=== PATIENT | female | born 1950 | race African-American/Black ===

== ENCOUNTER → 2016-11-18 | Outpatient (CLI) | payer BC ==
[~2016-11-18] MED LIST: ACTOS PO; ALB/IPRATROPIUM/1 E2 INH; ALBUTEROL1.25 MG/3 IH; ALDACTONE PO; ALENDRONATE SOD70 M1 PO; AMARYL PO; AMARYL2 MG PO; AMPICILLIN PO; ASPIRIN81 M2 PO; ASPIRIN81 MG PO; ATORVASTATIN CA80 MG PO; AZITHROMYCIN250 MG PO; CANASA1000 MG/S1 RC; CANASA1000 MG/SU PR; CARDIZEM30 M1 PO; CARDIZEM30 MG PO; CATAFLAM50 MG PO; CIPRO PO; COMBIVENT INH14.7 GM INH; COMBIVENT MININEB INH; DESYREL50 MG PO; DOCUSATE SODIU100 MG PO; ENTRESTO 24 MG1 EACH PO; FISH OIL 1,2001 CAP PO; FLAGYL PO; FLEXERIL10 MG PO; FLUOXETINE HCL20 M1 PO; GLIMEPIRIDE2 MG PO; GLUCOTROL; GLYBURIDE PO; HUMIBID-LA600 MG PO; HYDRALAZINE HC100 MG PO; HYDRALAZINE HCL50 MG PO; HYDROCHLOROTHIA25 MG PO; HYDROXYZINE PAM25 M1 PO; JANUVIA PO; JANUVIA100 MG PO; JANUVIA25 MG PO; JANUVIA50 MG PO; LEVAQUIN PO; LIPITOR PO; LIPITOR20 MG PO; LIPITOR40 MG PO; LISINOPRIL20 MG PO; LORTAB 5/500 TA1 TA2 PO; METOPROLOL TAR25 MG PO; METOPROLOL TART25 MG PO; MIRALAX17 G2 PO; MIRALAX17 GM PO; MONUROL3 GM PO; MULTI VITAMIN1 EACH PO; MULTI-DAY VITA1 EACH PO; MULTIPLE VITAMI1 T13 PO; MULTIVITAMINS1 EAC3 PO; NICORETTE4 MG BC; NICOTINE PATCH1 EAC1 TD; NICOTINE TRANSD21 MG EXT; NICOTINE1 EAC1 TD; NITROFURANTOIN100 M3 PO; NORVASC PO; NORVASC10 MG PO; NOVOLOG100 U/ML; OXYCODON HCL-AP1 TA2 PO; OXYCODONE HCL10 MG PO; PANTOPRAZOLE SO40 MG PO; PAXIL PO; PERCOCET 10/31 UDTA1 PO; PERCOCET 10/3251 TAB PO; PERCOCET 5-3251 TAB PO; PHENERGAN25 MG PO; PREDNISONE PO; PREDNISONE10 MG PO; PROTONIX PO; PROZAC PO; PULMICORT200 MCG/AE; PYRIDIUM PO; RAPIFLUX20 M1 PO; SIMVASTATIN40 MG PO; TRAMADOL HCL50 M1 PO; TRAMADOL HCL50 M2 PO; TYLENOL325 M1 PO; VITAMIN D31000 UNIT PO; VOLTAREN50 MG PO; ZESTRIL40 MG PO; ZOFRAN ODT4 MG PO
== END | disposition home or self-care (01) ==
LOC: CSSDAY 14:16
PROC: 3C1ZX8Z Irrigation of Indwelling Device using Irrigating Substance, External Approach (ICD-10-PCS; principal; 2016-11-18)
DX: Z45.2 Encounter for adjustment and management of vascular access device (principal)
CPT/HCPCS: G0463; J1642

== ENCOUNTER 2017-03-02 14:41 | Emergency (ER) | payer BC ==
--- NOTE | ~2017-03-02 | CT4 ---
[facility] A Service of [facility] RADIOLOGY TEXT RESULTS PATIENT: LAURA JEFFERY LOCATION: [facility] : 52 UNIT #: [id number] AGE: [address]: Robinson Mckeon MD SEX: F ORDER DR: [id number] [facility] [address] [place], [place] [address] [id number] E MR#: [id number] Acc #: [id number] NAME: LAURA JEFFERY : 1950 SEX: F STUDY DATE/TIME: 03/02/2017 16:10 UNIT: FABIANA ROOM: STUDY DESCRIPTION: CT Abd and Pelv Wo Cont Attending Physician: Robinson Mckeon M.D. Ordering Physician: Robinson Mckeon M.D. Primary Care Physician: Boo Au M.D. MEDICAL IMAGING REPORT This report is preliminary unless electronic signature is present EXAM CT abdomen and pelvis without contrast HISTORY Abdomen pain nausea vomiting diarrhea beginning today. COMPARISON 01/07/2015. TECHNIQUE Axial 5 mm images were obtained through the abdomen and pelvis without IV or oral contrast. This CT exam was performed with one or more of the following radiation dose reduction techniques: automatic control, adjustment of mA and/or kV according to patient size, and iterative reconstruction. FINDINGS Lung bases are clear. The liver, gallbladder, spleen, pancreas, adrenal glands and kidneys are normal in appearance. The aorta is normal in size and there is no adenopathy. The bowel is normal. The uterus and adnexal regions are normal and the bladder is normal. There is a left hip prosthesis present. There are degenerative changes in the lumbar spine. There are some cecal diverticula which are stable. IMPRESSION 1. Study is unremarkable. There is no evidence of colitis or cause for the patient's abdomen pain or diarrhea. 2. Degenerative changes lumbar spine. Previous left hip replacement. Dictated by... [facility] A Service of [facility] RADIOLOGY TEXT RESULTS PATIENT: LAURA JEFFERY LOCATION: [facility] : 52 UNIT #: [id number] AGE: [address]: Robinson Mckeon MD SEX: F ORDER DR: Ash Cohen M.D. THIS IS AN ELECTRONICALLY VERIFIED REPORT Ash Cohen M.D. at 03/03/2017 8:41 AM FABIENNE/[place] TD: 03/02/2017 18:01 JOB #: [id number] MEDICAL IMAGING REPORT Page 1 of 1 COPY
[~2017-03-02 14:41] MED LIST changes: -ALB/IPRATROPIUM/1 E2 INH; -ALDACTONE PO; -ALENDRONATE SOD70 M1 PO; -ASPIRIN81 MG PO; -ATORVASTATIN CA80 MG PO; -CARDIZEM30 M1 PO; -COMBIVENT MININEB INH; -DESYREL50 MG PO; -DOCUSATE SODIU100 MG PO; -ENTRESTO 24 MG1 EACH PO; -HUMIBID-LA600 MG PO; -HYDRALAZINE HC100 MG PO; -HYDROXYZINE PAM25 M1 PO; -JANUVIA25 MG PO; -METOPROLOL TAR25 MG PO; -METOPROLOL TART25 MG PO; -MONUROL3 GM PO; -MULTI-DAY VITA1 EACH PO; -MULTIVITAMINS1 EAC3 PO; -NICOTINE PATCH1 EAC1 TD; -NICOTINE1 EAC1 TD; -NOVOLOG100 U/ML; -TRAMADOL HCL50 M1 PO; -TRAMADOL HCL50 M2 PO; -VITAMIN D31000 UNIT PO
[2017-03-02 16:05] LABS: BASOPHIL% 0.1 % (0-2.5); HEMATOCRIT 38.6 % (35.0-45.0); HEMOGLOBIN 12.1 gm/dL (12.0-16.0); LYMPHOCYTE# 0.3 X10e3 (1.0-3.5); MEAN CELL VOLUME 85.1 FL (83-96); MEAN CORPUSCULAR HEMOGLOBIN 26.6 PG (28-34); MEAN CORPUSCULAR HGB CONC 31.3 g/dL (30-36); MEAN PLATELET VOLUME 7.9 FL (6.5-11.5); MONOCYTE# 0.6 X10e3 (0-1.0); NEUTROPHIL# 14.8 X10e3 (1.5-7.1); NEUTROPHIL% 93.9 % (40-75); PLATELET COUNT 344 X10e3 (140-420); RED BLOOD COUNT 4.54 X10e (3.90-5.30); RED CELL DISTRIBUTION WIDTH 15.2 % (11.0-15.5); WHITE BLOOD COUNT 15.7 X10e3 (4.0-10.5)
[2017-03-02 16:06] LABS: DIFF IND YES
[2017-03-02 16:27] LABS: ALBUMIN SERUM 3.5 g/dL (3.5-5.0); BILIRUBIN, DIRECT 0.1 mg/dL (0.0-0.2); BILIRUBIN,INDIRECT 0.8 mg/dL (0.0-0.9); BILIRUBIN,TOTAL 0.9 mg/dL (0.2-2.0); CALCIUM SERUM 10.3 mg/dL (8.4-10.2); CREATININE SERUM 0.8 mg/dL (0.6-1.4); GLOM FILT RATE Estimated 90.4 mL/min (>60); POTASSIUM 3.5 mmol/L (3.5-5.1); PROTEIN TOTAL SERUM 7.5 g/dL (6.0-8.3)
[2017-03-02 17:34] LABS: ANISOCYTOSIS MOD
[2017-03-02 17:35] LABS: PLATELET ESTIMATE NORMAL (NORMAL)
[2017-03-02 17:36] LABS: URINE SOURCE CLEAN CATCH
[2017-03-02 17:39] LABS: URINE APPEARANCE CLOUDY; URINE BLOOD NEG (NEG); URINE COLOR DK YELLOW; URINE GLUCOSE NEG (NEG); URINE KETONE 1+ (NEG); URINE LEUKOCYTE ESTERASE 2+ (NEG); URINE NITRATE NEG (NEG); URINE PROTEIN TRACE (NEG); URINE SPECIFIC GRAVITY 1.024 (1.003-1.035)
[2017-03-02 17:41] LABS: CULTURE INDICATED? YES; URINE BACTERIA AUWI 3+ (NEGATIVE); URINE SQUAMOUS EPITHELIAL CELL FEW /[HPF]; UWBCS1 AUWI 50-100 (0-5)
[2017-03-02 17:59] LABS: URINE BILIRUBIN NEG (NEG)
[2017-07-13] MEDS ORDERED: COMBIVENT MININEB INH ×2 (04:26→04:37)
[2017-07-13] MEDS ORDERED: ENTRESTO 24 MG1 EACH PO ×2 (04:26→04:38)
[2017-07-13] MEDS ORDERED: DESYREL50 MG PO ×2 (04:27→04:39)
[2017-07-13] MEDS ORDERED: JANUVIA25 MG PO (04:28)
[2017-07-13] MEDS ORDERED: HYDROXYZINE PAM25 M1 PO ×2 (04:29→04:40)
[2017-07-13] MEDS ORDERED: ATORVASTATIN CA80 MG PO ×2 (04:29→04:40)
[2017-07-13] MEDS ORDERED: NICOTINE1 EAC1 TD ×2 (04:31→04:41)
[2017-07-13] MEDS ORDERED: METOPROLOL TAR25 MG PO (04:32)
[2017-07-13] MEDS ORDERED: JANUVIA50 MG PO ×2 (04:39→04:44)
[2017-07-13] MEDS ORDERED: METOPROLOL TART25 MG PO (04:41)
[2017-07-13] MEDS ORDERED: DOCUSATE SODIU100 MG PO (04:42)
[2017-07-13] MEDS ORDERED: MIRALAX17 GM PO (04:43)
[2017-07-13] MEDS ORDERED: HUMIBID-LA600 MG PO (04:43)
[2017-07-13] MEDS ORDERED: MULTI-DAY VITA1 EACH PO (04:44)
[2017-07-13] MEDS ORDERED: ASPIRIN81 MG PO (04:45)
[2017-07-13] MEDS ORDERED: TRAMADOL HCL50 M1 PO (04:46)
[2017-07-13] MEDS ORDERED: ALDACTONE PO (04:47)
[2017-07-13] MEDS ORDERED: PROTONIX PO (04:47)
[2017-07-13] MEDS ORDERED: VITAMIN D31000 UNIT PO (04:52)
[2017-07-13] MEDS ORDERED: ALENDRONATE SOD70 M1 PO (04:53)
== END 2017-03-02 18:52 | disposition home or self-care (01) ==
LOC: CED 14:41
PROVIDERS: Emergency Medicine
DX: N39.0 Urinary tract infection, site not specified (principal); R19.7 Diarrhea, unspecified; I11.0 Hypertensive heart disease with heart failure; I50.9 Heart failure, unspecified; J44.9 Chronic obstructive pulmonary disease, unspecified; F32.9 Major depressive disorder, single episode, unspecified; E78.5 Hyperlipidemia, unspecified; F17.210 Nicotine dependence, cigarettes, uncomplicated; Z88.1 Allergy status to other antibiotic agents; Z88.2 Allergy status to sulfonamides; Z91.040 Latex allergy status; Z88.8 Allergy status to other drugs, medicaments and biological substances
CPT/HCPCS: 36415; 74176; 80048; 80076; 81003; 83690; 85025; 87045; 87086; 87177; 87209; 87427; 87493; 87899; 96361; 96365; 96372; 96375; 99284; J0500; J0696; J1642; J2405

== ENCOUNTER 2017-03-02 23:32 | Emergency (ER) | payer BC ==
--- NOTE | ~2017-03-02 | EKG ---
PATIENT: LAURA JEFFERY UNIT #: [id number] Ventricular Rate: 81 BPM Atrial Rate: 81 BPM P-R Interval: 148 ms QRS Duration: 88 ms Q-T Interval: 438 ms QTC Calculation(Bezet): 508 ms P [place]: 74 degrees Calculated R [place]: 24 degrees Calculated T [place]: 63 degrees Diagnosis Line: Normal sinus rhythm Diagnosis Line: Prolonged QT Diagnosis Line: Abnormal ECG Diagnosis Line: No previous ECGs available Diagnosis Line: Confirmed by FELIX OCASIO MD ([id number]) on 03/04/2017 Diagnosis Line: 10:34:00 AM INTERPRETING MD: AMARJIT STORY
[2017-07-13] MEDS ORDERED: COMBIVENT MININEB INH ×2 (04:26→04:37)
[2017-07-13] MEDS ORDERED: ENTRESTO 24 MG1 EACH PO ×2 (04:26→04:38)
[2017-07-13] MEDS ORDERED: DESYREL50 MG PO ×2 (04:27→04:39)
[2017-07-13] MEDS ORDERED: JANUVIA25 MG PO (04:28)
[2017-07-13] MEDS ORDERED: ATORVASTATIN CA80 MG PO ×2 (04:29→04:40)
[2017-07-13] MEDS ORDERED: HYDROXYZINE PAM25 M1 PO ×2 (04:29→04:40)
[2017-07-13] MEDS ORDERED: NICOTINE1 EAC1 TD ×2 (04:31→04:41)
[2017-07-13] MEDS ORDERED: METOPROLOL TAR25 MG PO (04:32)
[2017-07-13] MEDS ORDERED: JANUVIA50 MG PO ×2 (04:39→04:44)
[2017-07-13] MEDS ORDERED: METOPROLOL TART25 MG PO (04:41)
[2017-07-13] MEDS ORDERED: DOCUSATE SODIU100 MG PO (04:42)
[2017-07-13] MEDS ORDERED: HUMIBID-LA600 MG PO (04:43)
[2017-07-13] MEDS ORDERED: MIRALAX17 GM PO (04:43)
[2017-07-13] MEDS ORDERED: MULTI-DAY VITA1 EACH PO (04:44)
[2017-07-13] MEDS ORDERED: ASPIRIN81 MG PO (04:45)
[2017-07-13] MEDS ORDERED: TRAMADOL HCL50 M1 PO (04:46)
[2017-07-13] MEDS ORDERED: ALDACTONE PO (04:47)
[2017-07-13] MEDS ORDERED: PROTONIX PO (04:47)
[2017-07-13] MEDS ORDERED: VITAMIN D31000 UNIT PO (04:52)
[2017-07-13] MEDS ORDERED: ALENDRONATE SOD70 M1 PO (04:53)
== END 2017-03-03 02:55 | disposition home or self-care (01) ==
LOC: CED 23:32
DX: R51 Headache (principal); R42 Dizziness and giddiness; R11.2 Nausea with vomiting, unspecified; E11.9 Type 2 diabetes mellitus without complications; E78.5 Hyperlipidemia, unspecified; I10 Essential (primary) hypertension; J45.909 Unspecified asthma, uncomplicated; F17.200 Nicotine dependence, unspecified, uncomplicated; N28.9 Disorder of kidney and ureter, unspecified; Z98.890 Other specified postprocedural states; Z98.51 Tubal ligation status; Z88.1 Allergy status to other antibiotic agents; Z88.2 Allergy status to sulfonamides; Z91.040 Latex allergy status; Z88.8 Allergy status to other drugs, medicaments and biological substances
CPT/HCPCS: 93005; 96361; 96374; 96375; 99284; J0780; J1200; J1642

== ENCOUNTER → 2017-03-19 | Outpatient (CLI) | payer BC ==
[~2017-03-19] MED LIST changes: +ALB/IPRATROPIUM/1 E2 INH; +ALDACTONE PO; +ALENDRONATE SOD70 M1 PO; +ASPIRIN81 MG PO; +ATORVASTATIN CA80 MG PO; +CARDIZEM30 M1 PO; +COMBIVENT MININEB INH; +DESYREL50 MG PO; +DOCUSATE SODIU100 MG PO; +ENTRESTO 24 MG1 EACH PO; +HUMIBID-LA600 MG PO; +HYDRALAZINE HC100 MG PO; +HYDROXYZINE PAM25 M1 PO; +JANUVIA25 MG PO; +METOPROLOL TAR25 MG PO; +METOPROLOL TART25 MG PO; +MONUROL3 GM PO; +MULTI-DAY VITA1 EACH PO; +MULTIVITAMINS1 EAC3 PO; +NICOTINE PATCH1 EAC1 TD; +NICOTINE1 EAC1 TD; +NOVOLOG100 U/ML; +TRAMADOL HCL50 M1 PO; +TRAMADOL HCL50 M2 PO; +VITAMIN D31000 UNIT PO
== END | disposition home or self-care (01) ==
LOC: CSSDAY 13:00
DX: Z45.2 Encounter for adjustment and management of vascular access device (principal); N18.3 Chronic kidney disease, stage 3 (moderate)
CPT/HCPCS: G0463; J1642

== ENCOUNTER → 2017-04-16 | Outpatient (CLI) | payer BC | END | disposition home or self-care (01) | LOC: CSSDAY 13:00 | PROC: 3C1ZX8Z Irrigation of Indwelling Device using Irrigating Substance, External Approach (ICD-10-PCS; principal; 2017-04-16) | DX: Z45.2 Encounter for adjustment and management of vascular access device (principal); N18.9 Chronic kidney disease, unspecified | CPT/HCPCS: G0463; J1642 ==

== ENCOUNTER → 2017-05-14 | Outpatient (CLI) | payer BC | END | disposition home or self-care (01) | LOC: CSSDAY 14:00 | DX: Z45.2 Encounter for adjustment and management of vascular access device (principal); N18.3 Chronic kidney disease, stage 3 (moderate) | CPT/HCPCS: G0463; J1642 ==

== ENCOUNTER → 2017-05-26 | Outpatient (CLI) | payer BC ==
--- NOTE | ~2017-05-26 | BD1 ---
[facility] A Service of [facility] & [facility] RADIOLOGY TEXT RESULTS PATIENT: LAURA JEFFERY LOCATION: [facility] : 54 UNIT #: [id number] AGE: [address]: DARWIN SMART MD SEX: F ORDER DR: [id number] [facility] [address] [place], [place] [address] [id number] O MR#: [id number] Acc #: [id number] NAME: LAURA JEFFERY : 1950 SEX: F STUDY DATE/TIME: 05/26/2017 13:43 UNIT: [facility] ROOM: STUDY DESCRIPTION: BD Dexa Bone Dens 1+ Site Attending Physician: Darwin Smart M.D. Referring Physician: Darwin Smart M.D. Ordering Physician: Darwin Smart M.D. Primary Care Physician: Darwin Smart M.D. MEDICAL IMAGING REPORT This report is preliminary unless electronic signature is present EXAM DXA scan, 05/26/2017 HISTORY Status post menopause with no hormone replacement therapy. Osteopenia. Family history of breast carcinoma. Hyperthyroidism. Diabetes. Fracture of left hip in the last 10 years. Smoking history. Hypertension with blood pressure medication. FINDINGS Bone mineral density in the lumbar spine from L1 through L4 is 0.962 g/cm2 which is 1.7 standard deviations below the mean when compared to the young adult reference population which is characteristic of osteopenia. This is 0.2 standard deviations above the mean when compared to the age-matched population. Bone mineral density in the right femoral neck was 0.738 g/cm2 which is 1.5 standard deviations below the mean when compared to the young adult reference population which is characteristic of osteopenia. This is 0.2 standard deviations below the mean when compared to the age-matched population. IMPRESSION Bone mineral density in the lumbar spine and right hip characteristic of osteopenia. Dictated by... Alexandru Arevalo M.D. THIS IS AN ELECTRONICALLY VERIFIED REPORT Alexadnru Arevalo M.D. at 05/27/2017 10:20 AM KRT/ljd [facility] A Service of [facility] & [facility] RADIOLOGY TEXT RESULTS PATIENT: LAURA JEFFERY LOCATION: [facility] : 54 UNIT #: [id number] AGE: [address]: DARWIN SMART MD SEX: F ORDER DR: TD: 05/26/2017 21:50 JOB #: [id number] MEDICAL IMAGING REPORT Page 1 of 1 COPY
== END | disposition home or self-care (01) ==
LOC: CWCC 13:28
DX: M81.0 Age-related osteoporosis without current pathological fracture (principal); M85.89 Other specified disorders of bone density and structure, multiple sites
CPT/HCPCS: 77080

== ENCOUNTER → 2017-06-11 | Outpatient (CLI) | payer BC | END | disposition home or self-care (01) | LOC: CSSDAY 14:00 | DX: Z45.2 Encounter for adjustment and management of vascular access device (principal); N18.3 Chronic kidney disease, stage 3 (moderate) | CPT/HCPCS: J1642 ==

== ENCOUNTER 2017-06-18 17:14 | Inpatient (IN) | payer BC ==
[~2017-06-18] VITALS: Ht 170.2 cm; Wt 74.1 kg
--- NOTE | ~2017-06-18 | CR6 ---
[facility] A Service of [facility] & [facility] RADIOLOGY TEXT RESULTS PATIENT: LAURA JEFFERY LOCATION: [facility] 571-01 : 54 UNIT #: [id number] AGE: [address]: Noe Storm MD SEX: F ORDER DR: [id number] [facility] [address] [place], [place] [address] [id number] I MR#: [id number] Acc #: [id number] NAME: LAURA JEFFERY : 1950 SEX: F STUDY DATE/TIME: 06/22/2017 11:51 UNIT: [facility] ROOM: [facility] STUDY DESCRIPTION: CR Abdomen Portable Sng View Attending Physician: Noe Storm M.D. Ordering Physician: Jenn Ventura A.P.R.N. Primary Care Physician: Boo Au M.D. MEDICAL IMAGING REPORT This report is preliminary unless electronic signature is present EXAM Abdomen portable 06/22/2017 1151 hours HISTORY Abdominal pain with nausea and vomiting for 5 days. Prior history of diverticulitis. COMPARISON 06/20/2017 FINDINGS Single supine view of the abdomen demonstrates a nonspecific bowel gas pattern. There is no distension of the stomach, small bowel or colon. There is questionable rugal fold thickening in the stomach however the stomach is not distended which may be may account for this finding. There is no suspicious calcification. Postop change left hip replacement. IMPRESSION 1. No distension of the small bowel, colon or stomach. No obstruction or suspicious calcification. 2. Question rugal fold thickening of the stomach. This may simply be due to the contracted state. 3. Postop change left hip replacement similar to 06/20/2017. Dictated by... Aarti Joy M.D. THIS IS AN ELECTRONICALLY VERIFIED REPORT Aarti Joy M.D. at 06/22/2017 7:05 PM COBY/[place] TD: 06/22/2017 17:08 JOB #: [id number] [facility] A Service of [facility] & [facility] RADIOLOGY TEXT RESULTS PATIENT: LAURA JEFFERY LOCATION: [facility] 571-01 : 54 UNIT #: [id number] AGE: [address]: Noe Storm MD SEX: F ORDER DR: MEDICAL IMAGING REPORT Page 1 of 1 COPY
--- NOTE | ~2017-06-18 | CR4 ---
[facility] A Service of [facility] RADIOLOGY TEXT RESULTS PATIENT: LAURA JEFFERY LOCATION: [facility] : 54 UNIT #: [id number] AGE: [address]: Noe Storm MD SEX: F ORDER DR: [id number] [facility] [address] [place], [place] [address] [id number] I MR#: [id number] Acc #: [id number] NAME: LAURA JEFFERY : 1950 SEX: F STUDY DATE/TIME: 06/20/2017 14:56 UNIT: [facility] ROOM: [facility] STUDY DESCRIPTION: CR Abdomen Flat Upright or Dec Attending Physician: Noe Storm M.D. Ordering Physician: Belinda Espino M.D. Primary Care Physician: Boo Au M.D. MEDICAL IMAGING REPORT This report is preliminary unless electronic signature is present EXAM Flat and upright abdomen 06/20/2017 INDICATIONS Nausea, vomiting and pain since June 18. TECHNIQUE Supine upright views were performed COMPARISON Correlation is made with CT 03/02/2017 FINDINGS Moderate stool burden. Upright view demonstrates no free air. No dilated air-filled loops of bowel are seen. There is gaseous distension of the hepatic flexure. No mass effect. Probable vascular calcifications in the pelvis. Degenerative change of the lumbar spine. Probable atelectasis in the lung bases. IMPRESSION Nonspecific but nonobstructive bowel gas pattern. Moderate stool burden in the colon. Dictated by... Tenzin Price M.D. THIS IS AN ELECTRONICALLY VERIFIED REPORT Tenzin Price M.D. at 06/20/2017 11:16 PM CAROL ANNY/blayne TD: 06/20/2017 18:02 JOB #: [id number] [facility] A Service of [facility] & [facility] RADIOLOGY TEXT RESULTS PATIENT: LAURA JEFFERY LOCATION: [facility] : 54 UNIT #: [id number] AGE: [address]: Noe Storm MD SEX: F ORDER DR: MEDICAL IMAGING REPORT Page 1 of 1 COPY
--- NOTE | ~2017-06-18 | CO ---
Unit #: [id number] #: [id number] Patient: LAURA JEFFERY [id number] [address] [place], [place] [address] [id number] I MR#: [id number] NAME: LAURA JEFFERY ROOM: 571 Age: 66 Sex: F Admission Date: 06/18/2017 : 1950 Attending Physician: Noe Storm M.D. Primary Care Physician: Boo Au M.D. Consultation Date: 06/19/2017 CONSULTATION REPORT REASON FOR CONSULTATION Medical management, diabetes, possible UTI, upper respiratory infection, GI symptoms. HISTORY OF PRESENT ILLNESS The patient is a 66-year-old female with a past medical history of COPD, CHF, diabetes, hypertension, hyperlipidemia, chronic kidney disease, chronic pain, heroin abuse, who was admitted by Dr. Storm June 18, 2017, for non-ST elevation myocardial infarction and CHF exacerbation. The patient states that she was in her usual state of health until June 18 when she started feeling poorly. Regarding the chest pain, the pain is in the mid chest. She describes it as "sharp." It does not radiate. She has had associated shortness of breath. She denies any diaphoresis. She has had nausea and vomiting. EKG showed normal sinus rhythm with a rate of 70 beats per minute. Initial troponin was 3.57. Most recent troponin is 9.7. She was admitted by Cardiology and is currently on heparin and Integrilin drips. The patient also reports increasing shortness of breath and productive cough. She denies any fever or chills. She continues to smoke. The patient is also complaining of abdominal pain in the epigastric area. She describes it as "pain." There are no exacerbating or alleviating factors. She has had vomiting and two bouts of loose stool in association with the pain. She also reports burning with urination and has noticed decreased urine output. Urinalysis from yesterday showed 1+ leukocyte esterase, 5-10 white blood cells, and 1+ bacteria. She is not currently on antibiotics. PAST MEDICAL HISTORY 1. Admission to [facility] June 18-2014, for COPD exacerbation. 2. Diabetes. 3. Chronic kidney disease. The patient has seen Dr. James in the past. 4. Interstitial cystitis. 5. Diastolic dysfunction. 6. Hypertension. 7. Hyperlipidemia. 8. COPD, not on home oxygen. 9. Echocardiogram April 19, 2014, showed an ejection fraction of 50% to 55%. PAST SURGICAL HISTORY Unit #: [id number] #: [id number] Patient: LAURA JEFFERY 1. Tubal ligation. 2. Left lower extremity surgery. 3. Left index surgery. 4. Breast lumpectomy. 5. Left knee surgery. 6. Colonoscopy January 18, 2015, showed mild diverticulosis but otherwise normal. No polyps or hemorrhoids were present. 7. Cardiac catheterization April 19, 2014, showed angiographically normal coronary arteries with an ejection fraction of 45%. 8. EGD April 27, 2014, showed diffuse, moderate to severe gastritis with multiple erosions. Duodenitis was also noted, as well as mild esophagitis. SOCIAL HISTORY The patient lives with her . She smokes a pack of cigarettes daily. She denies alcohol use. She does have a history of heroin use last use being in January. Her code status is a Full Code. FAMILY HISTORY Notable for her mother having lung cancer. ALLERGIES Adhesives, clindamycin, sulfa, metformin, latex. HOME MEDICATIONS 1. Hydroxyzine 25 mg t.i.d. 2. Tramadol 50 mg 4 times daily p.r.n. 3. Januvia 50 mg daily. 4. Cardizem 30 mg twice daily. 5. Hydralazine 100 mg t.i.d. 6. Protonix 40 mg daily. 7. Desyrel 50 mg at bedtime. 8. Vitamin D3 at 1000 units daily. 9. Multivitamin daily. 10. NovoLog. REVIEW OF SYSTEMS A complete review of systems is negative except as indicated in the HPI. The patient states that she has lost possibly 10-20 pounds over an unknown amount of time. She has had decreased appetite with nausea and vomiting as stated above. She also reports decreased urine output and burning with urination. PHYSICAL EXAMINATION VITAL SIGNS: Temperature is 98, pulse 95, respirations 18, blood pressure 154/112, oxygen saturation 95% on room air. GENERAL: The patient is an female who is awake, alert, and in no acute distress. HEENT: Head is atraumatic. Mucous membranes are moist. NECK: Supple. Trachea is midline. CARDIOVASCULAR: Regular rate and rhythm. LUNGS: Demonstrate a few scattered inspiratory and expiratory wheezes. Breathing is not labored with conversation. ABDOMEN: Soft. She is tender to palpation in the epigastric areas. Bowel sounds are present in all four quadrants. EXTREMITIES: Nontender with no pedal edema. NEUROLOGIC: The patient is awake and alert. She follows commands. PSYCHIATRIC: Mood and affect are normal. Patient is cooperative. Unit #: [id number] #: [id number] Patient: LAURA JEFFERY SKIN: Skin of examined areas is warm and dry. DIAGNOSTIC STUDIES LABORATORY: Troponin from this morning was 9.7. Hemoglobin A1c 5.7. Basic metabolic panel notable for glucose of 213, BUN and creatinine 20 and 1.3, respectively. BNP is 961. Complete blood count notable for white blood cell count of 10.7, hemoglobin 15, platelets 255,000. IMAGING: Chest x-ray from yesterday shows interstitial opacities bilaterally favored to represent edema. CARDIOLOGY: EKG shows normal sinus rhythm with a rate of 70 beats per minute. ASSESSMENT The patient is a 66-year-old female with: 1. Non-ST elevation myocardial infarction. The patient's most recent troponin was 9.7. She is on Integrilin and heparin drips. She was admitted by Cardiology. The plan is for her to have cardiac catheterization on June 21, 2017. 2. Chronic obstructive pulmonary disease exacerbation. 3. Congestive heart failure exacerbation. 4. Abdominal pain. The patient had a colonoscopy on January 18, 2015, which results as noted above. The patient does have a history of gastritis. She has been started on Protonix. She has a urinary tract infection as well which could be contributing. 5. Urinary tract infection. A urine culture from August 07, 2015, grew greater than 100,000 E. coli, ESBL. 6. Diabetes. The patient's hemoglobin A1c was 5.7 on June 19, 2017. 7. Hypertension. 8. Hyperlipidemia. 9. Chronic kidney disease, stage 3. Creatinine is 1.3 today. 10. Chronic pain. 11. History of heroin abuse with urine toxicology screen pending. 12. Tobacco abuse. PLAN 1. Regarding COPD exacerbation, I have ordered supplemental oxygen, as well as DuoNebs, Solu-Medrol, and Mucinex. 2. Regarding urinary tract infection, the patient does have a history of ESBL urinary tract infection. I have ordered urine culture and sensitivity on urine in the lab and will start the patient on meropenem pending results of urine culture. 3. Regarding diabetes, I have ordered low-dose sliding scale insulin with Accu-Cheks. 4. Regarding abdominal pain, the patient does have a history of gastritis. She has been started on Protonix and will continue to monitor closely. Thank you very much for the consultation. We will follow the patient along closely with you. Dictated by... Anne-Marie Cox M.D. UMU/keith TD: 06/20/2017 14:28 Unit #: [id number] #: [id number] Patient: LAURA JEFFERY JOB #: [id number] CONSULTATION REPORT Page 1 of 1 X Anne-Marie Cox MD X CONSULTATION REPORT
--- NOTE | ~2017-06-18 | EKG ---
PATIENT: LAURA JEFFERY UNIT #: [id number] Ventricular Rate: 79 BPM Atrial Rate: 79 BPM P-R Interval: 150 ms QRS Duration: 96 ms Q-T Interval: 438 ms QTC Calculation(Bezet): 502 ms P [place]: 74 degrees Calculated R [place]: 32 degrees Calculated T [place]: -138 degrees Diagnosis Line: Normal sinus rhythm Diagnosis Line: Left ventricular hypertrophy with repolarization Diagnosis Line: abnormality Diagnosis Line: Prolonged QT Diagnosis Line: Abnormal ECG Diagnosis Line: When compared with ECG of 19-JUN-2017 12:39, Diagnosis Line: (unconfirmed) Diagnosis Line: No significant change was found Diagnosis Line: Confirmed by JEANNIE PINTO MD ([id number]) on Diagnosis Line: 06/20/2017 5:06:59 PM INTERPRETING MD: LUCILLE
--- NOTE | ~2017-06-18 | CR72 ---
[facility] A Service of [facility] & [facility] RADIOLOGY TEXT RESULTS PATIENT: LAURA JEFFERY LOCATION: [facility] 571-01 : 52 UNIT #: [id number] AGE: [address]: Noe Storm MD SEX: F ORDER DR: [id number] [facility] [address] [place], [place] [address] [id number] I MR#: [id number] #: [id number] NAME: LAURA JEFFERY : 1950 SEX: F STUDY DATE/TIME: 06/18/2017 18:01 UNIT: [facility] ROOM: [facility] STUDY DESCRIPTION: CR Chest Single View Portable Attending Physician: Noe Storm M.D. Ordering Physician: Baldev Hernandez M.D. Primary Care Physician: Boo Au M.D. MEDICAL IMAGING REPORT This report is preliminary unless electronic signature is present EXAM Frontal chest 06/18/2017 INDICATIONS 66-year-old female with chest pain nausea vomiting diarrhea, hypertension. INDICATIONS Frontal chest compared with 03/09/2017 FINDINGS Left-sided central line unchanged. The cardiac silhouette is borderline in size and stable. There is probable mild vascular congestion and interstitial edema. No effusion or pneumothorax. Calcified granulomas present. IMPRESSION Borderline cardiac size with interstitial opacities bilaterally favored to represent edema rather than diffuse interstitial infiltrates, such as pneumonia. Follow up to clearing recommended. No pneumothorax. Dictated by... Tenzin Price M.D. THIS IS AN ELECTRONICALLY VERIFIED REPORT Tenzin Price M.D. at 06/19/2017 9:27 PM GUERRERO/blayne TD: 06/19/2017 13:18 JOB #: [id number] MEDICAL IMAGING REPORT Page 1 of 1 COPY
--- NOTE | ~2017-06-18 | EKG ---
PATIENT: LAURA JEFFERY UNIT #: [id number] Ventricular Rate: 86 BPM Atrial Rate: 86 BPM P-R Interval: 176 ms QRS Duration: 94 ms Q-T Interval: 414 ms QTC Calculation(Bezet): 495 ms P [place]: 73 degrees Calculated R [place]: 44 degrees Calculated T Brady: 100 degrees Diagnosis Line: Normal sinus rhythm Diagnosis Line: Biatrial enlargement Diagnosis Line: T wave abnormality, consider anterolateral Diagnosis Line: ischemia Diagnosis Line: Prolonged QT Diagnosis Line: Abnormal ECG Diagnosis Line: When compared with ECG of 18-JUN-2017 17:26, Diagnosis Line: (unconfirmed) Diagnosis Line: Nonspecific T wave abnormality now evident in Diagnosis Line: Inferior leads Diagnosis Line: T wave inversion now evident in Anterolateral Diagnosis Line: leads Diagnosis Line: Confirmed by JEANNIE PINTO MD ([id number]) on Diagnosis Line: 06/20/2017 5:00:44 PM INTERPRETING MD: LUCILLE
--- NOTE | ~2017-06-18 | HP ---
Unit #: [id number] #: [id number] [id number] [address] [place], [place] [address] [id number] MR#: [id number] NAME: LAURA HARDWICK ROOM: 571 Age: 66 Sex: F Admission Date: 06/18/2017 : 1950 Attending Physician: Noe Storm M.D. Primary Care Physician: Boo Au M.D. HISTORY AND PHYSICAL HISTORY OF PRESENT ILLNESS This is a 66-year-old female. She has a history of diabetes mellitus, hypertension, hyperlipidemia, and back in 2013 had an elevated troponin. She had a cath at that time that showed normal coronary arteries. Patient also has COPD. She has interstitial cystitis. She came into the emergency room after she had a day history of nausea, vomiting, and a bout of diarrhea, along with feeling like she was having maybe a UTI. She said she has also developed a cough and she felt congested and wheezy. She has had some chills but no significant fever noted. She denies any increased shortness of breath. She said she is having some midepigastric pain with her nausea and vomiting and also some lower quadrant pain. Patient denies any substernal chest pain and no pain in her neck or bilateral jaw, shoulders, arms, or elbows. Denies any palpitations. No dizziness, presyncope, or syncope. In the emergency room, patient's blood pressure was 154/96, heart rate was 94, respirations 16, temperature 99.1, O2 saturations 99% on room air. Initial labs: Her CK-MB was 11.4 and troponin was 3.57. Later, her CK-MB was 10.3 and troponin 3.71. BUN was 17, creatinine was 1.5, and potassium 3.5. Patient's WBC was 8.1 but later 10.7 and hemoglobin 15. Urinalysis is showing indication she might have a UTI, but cultures are pending. Chest x-ray shows interstitial opacities bilaterally favored to represent edema rather than infiltrates. Her EKG showed normal sinus rhythm with left atrial enlargement and poor R wave progression. Her EKG this morning shows some ST and T wave abnormalities and T wave inversion in anterolateral leads especially. Patient was given aspirin 325 along with IV morphine and IV Reglan and Pepcid, and she got some Nitrostat and started on a heparin drip per protocol. Also initiated a statin and beta josie and one dose of IV Lasix. Patient will be admitted for further evaluation and management. PAST MEDICAL HISTORY 1. April 2014 cardiac cath showed normal coronary arteries and LVEF of 45%. End-diastolic pressure revealed 36 mmHg, diastolic dysfunction. 2. In 2013, 2D echo, LVEF of 50% to 55%, mild tricuspid regurgitation, mild mitral regurgitation. 3. Diabetes mellitus type 2. 4. Hyperlipidemia. 5. Asthma and COPD. 6. Chronic kidney disease. 7. Questionable hepatitis B. 8. Chronic low back pain. 9. In 2013, colonoscopy was normal. 10. In 2013, EGD showed severe gastritis and esophagitis in the gastric Unit #: [id number] #: [id number] Patient: LAURA HARDWICK. 11. Depression and anxiety. 12. Nicotine abuse. 13. Alcohol abuse in the past but none in the last few years. 14. Heroin abuse, stated last usage was in January of this year. PAST SURGICAL HISTORY 1. EGD and colonoscopy. 2. Tubal ligation. 3. Repair of fracture in the left ankle. 4. Right breast biopsy. 5. Repair of laceration on the left finger. 6. Left knee scope. 7. Right knee surgery. 8. Hip replacement. HOME MEDICATIONS 1. Hydroxyzine 25 mg p.o. 3 times daily. 2. Tramadol 50 mg p.o. 4 times daily p.r.n. 3. Januvia 50 mg p.o. daily. 4. Cardizem 30 mg p.o. twice daily. 5. Hydralazine 100 mg p.o. 3 times daily. 6. Protonix 40 mg p.o. daily. 7. Trazodone 50 mg p.o. at bedtime. 8. NovoLog dosage and frequency unavailable. 9. Vitamin D3 at 1000 international units p.o. daily. 10. Multivitamin 1 tablet daily. ALLERGIES Clindamycin, sulfonamides, metformin, latex. SOCIAL HISTORY Patient lives with her spouse. She currently does not work. She states she normally can ambulate without a cane or walker, but she has a lot of medical issues with pain. Patient smokes a pack a day and has been smoking most of her adult life. She used to drink alcohol but has not drank recently. She did heroin back in January of this year when she was in [place] visiting friends but states she has not used any since then. FAMILY HISTORY Her mother had lung cancer. REVIEW OF SYSTEMS CONSTITUTIONAL: She does not think she had a fever but had some chills. HEENT: No visual or hearing changes. NECK: No lymphadenopathy or thyromegaly. No difficulty swallowing. CARDIOVASCULAR: Denies chest pain but complained of midepigastric pain. Denies palpitations. Denies dizziness. PULMONARY: Denies shortness of breath. Denies paroxysmal nocturnal dyspnea or orthopnea but has been having a nonproductive cough which is increasing in frequency. GASTROINTESTINAL: Nausea, vomiting, occasional bout of diarrhea, and abdominal discomfort. NEUROLOGICAL: No focal weakness. PHYSICAL EXAMINATION GENERAL: On exam, Miss Hardwick is a 66-year-old female in no acute respiratory distress. She is awake, alert, and oriented. Unit #: [id number] #: [id number] Patient: LAURA HARDWICK VITAL SIGNS: Blood pressure is currently 139/99, heart rate 95, respirations 18, temperature 98.6, and O2 saturations 99% on room air. NECK: Trachea midline. No thyromegaly or lymphadenopathy. Normal carotid upstrokes. No jugular venous distention. HEART: S1 and S2, regular rate and rhythm. No clicks, murmurs, or rubs. LUNGS: Bilateral rhonchi and wheezes especially in the upper airways and a few faint fine rales in bases. ABDOMEN: Soft. Tender with palpating in the midepigastric region. EXTREMITIES: Pedal pulses are palpable. Trace pedal edema. DIAGNOSTIC STUDIES LABORATORY: Glucose is 213, BUN 20, creatinine 1.3, eGFR 50.2, sodium 138, potassium 3.9, chloride 102, CO2 of 25, calcium 10.2, magnesium 1.6, total protein 7.4, albumin 4.3, bilirubin total 0.2, AST 37, ALT 14, alkaline phosphatase is 109, amylase is 19, and lipase is 16. BNP is 961. WBC 10.7, hemoglobin 15, hematocrit 45.6, and platelets of 255,000. Initial cardiac enzymes: CK-MB is 11.4 and troponin 3.57, CK-MB is 10.3 and troponin 3.71, and the latest CK total is 93 with a troponin of 9.7. Pro time was 12 with INR of 1.1 and PTT of 26 before heparin drip started. Urine tox screen is pending. Urinalysis shows 1+ leukocyte esterase, trace protein, 500 glucose, 1 urobilinogen, 5-10 WBCs, 1+ bacteria. Urine culture is pending. IMAGING: Chest x-ray shows interstitial opacities bilaterally favoring edema rather than interstitial infiltrates such as pneumonia. CARDIOLOGY: EKG on admission showed normal sinus rhythm with ventricular rate 86 beats per minute, T wave inversion in anterolateral leads and also inferior leads, poor R wave progression, and left ventricular hypertrophy. IMPRESSION 1. Nausea, vomiting, abdominal pain, and midepigastric pain. 2. Non-ST elevation [place]. 3. Mild diastolic congestive heart failure, acute on chronic, LVEF of 50% to 55% on last echo in 2013, mild TR, and mild MR. 4. Probable UTI. 5. Diabetes mellitus type 2. 6. Hyperlipidemia. 7. History of chronic kidney disease. 8. Dyspnea, COPD exacerbation versus bronchitis. 9. Nicotine abuse. 10. Chronic pain syndrome. 11. Heroin abuse with last usage in January according to patient. PLAN 1. Treatment for non-STEMI, on heparin drip. Continue aspirin and nitrite and on beta josie and statin. Start Integrilin drip due to troponins increasing. On exam, patient is not having any chest pain currently. 2. Check fasting lipid profile, TSH, and magnesium level and evaluate. 3. Patient's BNP is 961, and her chest x-ray shows increased interstitial edema so will start gently diuresing with IV Lasix with strict intake, output, and daily weights. Potassium level is 3.5. Will give an extra dose of potassium and also replace her magnesium. I just got the results back of 1.6. 4. Discussed with the patient the need to have a heart catheterization to reevaluate her coronary arteries. Discussed with the patient the risks and benefits including risk of bleeding, myocardial infarction, Unit #: [id number] #: [id number] Patient: HARDWICKLAURA stroke, and even . Patient verbalizes understanding and agrees to proceed. 5. Will ask HIPS to be consulted to help manage her diabetes, her UTI, and upper respiratory infection. 6. Patient has an order for DuoNeb treatments. 7. Obtain a 2D echo to reevaluate her LV function and valves. 8. Will put the patient on Protonix 40 mg IV b.i.d. since she has a history of ulcers back in 2013. 9. Encourages the patient to completely quit smoking. Smoking cessation information provided to patient. 10. Urine tox screen is pending, but encouraged the patient not to experiment with any drugs due to the possibility of heart damage. 11. Further recommendations pending per Dr. Camargo. 1. Dictated by Ngoc Liang A.P.R.N. for Asya Diaz/keith TD: 06/20/2017 15:17 JOB #: [id number] HISTORY AND PHYSICAL Page 1 of 1 X Ngoc Liang APRN X HISTORY AND PHYSICAL
--- NOTE | ~2017-06-18 | DS ---
Unit #: [id number] #: [id number] Patient: LAURA JEFFERY [id number] [address] [address] [id number] I MR#: [id number] NAME: LAURA JEFFERY ROOM: 571 Age: 66 Sex: F Admission Date: 06/18/2017 : 1950 Discharge Date: 06/22/2017 Attending Physician: Noe Storm M.D. Primary Care Physician: Boo Au M.D. DISCHARGE SUMMARY DISCHARGE DIAGNOSES 1. Acute anterolateral myocardial infarction with peak troponin of 9.70. 2. Status post cardiac catheterization 06/21/2017 which shows angiographically normal coronaries. Ejection fraction of 40%. There is a large area of anterolateral and apical wall ischemia with an apical dyskinesis. No mitral regurgitation. 3. 2D echocardiogram 06/19/2017 shows an ejection fraction of 35% with mild left ventricular diastolic dysfunction. There is mild left atrial enlargement, trace aortic regurgitation, mild mitral regurgitation and mild concentric left ventricular hypertrophy. 4. Vasospastic angina. 5. Acute systolic heart failure with ejection fraction of 35% compensated. 6. Hyperlipidemia. 7. Diabetes mellitus type 2. 8. Chronic obstructive pulmonary disease. 9. Urinary tract infection. 10. Constipation. 11. Leukocytosis. 12. Extended spectrum betalactamase urinary tract infection. 13. Chronic kidney disease stage 3. 14. Chronic pain syndrome. 15. History of heroin abuse. 16. Nicotine abuse. DISCHARGE MEDICATIONS 1. Fosfomycin 3 g p.o. x1. 2. Sitagliptin phosphate 50 mg daily. 3. Guaifenesin 600 mg p.o. b.i.d. x10 days. 4. Insulin aspart per sliding scale. 5. Multivitamin, 1 cap daily. 6. Aspirin 81 mg daily. 7. Atorvastatin 80 mg q. h.s. 8. Hydroxyzine 25 mg b.i.d. 9. Nicotine transdermal 21 mg patch daily. 10. Lopressor 25 mg b.i.d. 11. MiraLAX 17 grams p.o. daily. 12. Colace 100 mg b.i.d. 13. Tramadol 50 mg q.i.d. p.r.n. 14. Spironolactone 12.5 mg daily. 15. Protonix 40 mg daily. 16. Vitamin D 1000 units daily. 17. Entresto 24/26 mg b.i.d. 18. Desyrel 50 mg q. h.s. Unit #: [id number] #: [id number] Patient: LAURA JEFFERY [facility] This is a 66-year-old -Luxembourger female who presented to the emergency room nausea, vomiting and diarrhea. She also had a cough with congestion. She denies chest pain but complained of mid epigastric pain. Troponin initially in the emergency room was elevated at 3.57 but peaked at 9.70. Her electrocardiogram initially showed no ischemia, however, repeat electrocardiogram shows anterolateral ischemic changes. She was started on aspirin, nitrates, beta josie and high intensity statin with Lipitor 80 mg q. h.s. BNP was elevated at 961 with chest x-ray consistent with congestive heart failure. IV diuretic was initiated. She was placed on fluid restriction with 2 g sodium diet. Echocardiogram found the patient to have left ventricular systolic function with ejection fraction was 35%. Previous echocardiogram in April 2014 showed normal left ventricular systolic function. Her creatinine was mildly elevated initially but trended downward. Urinalysis positive for urinary tract infection. Cultures obtained showed E. coli. HIPS was asked to see the patient for management. She was started on IV antibiotics. In the meantime, Entresto was started because of heart failure. Cardiac catheterization was recommended given anterolateral ischemic changes on electrocardiogram and elevated troponin. Her coronaries were normal. There was a large area anterolateral akinesis and dyskinesis. It was felt the patient had vasospastic angina with anterolateral myocardial infarction. She was continued on medical therapy. The patient also had a complaint of abdominal pain that was present on admission. She had nausea. X-ray of her abdomen showed nonspecific bowel obstruction. There was moderate stool burden. She had a small enema. There was a bowel movement after the enema. MiraLAX and stool softeners were initiated. Today the patient has ambulated unassisted in the hallway without much difficulty. Her blood pressure marginally low. Heart rate stable. Electrocardiogram shows no changes. Oxygen was weaned off. Because of COPD, she required use of inhalers as well as supplemental oxygen. Room air sat was adequate. The patient demonstrated leukocytosis where her white count yesterday was 12.9. She has been afebrile. Will repeat CBC later this week to follow up for leukocytosis. She is stable for discharge home today. ASSESSMENT VITAL SIGNS: Blood pressure is 103/68, heart rate 59, temperature 97.7. CHEST: Clear with diminished breath sounds both bases. ABDOMEN: Soft, nontender but bowel sounds are present. HEART: S1, S2 with regular rate and rhythm. EXTREMITIES: Without leg edema. Right radial without hematoma or bruising. DIAGNOSTIC STUDIES LABORATORY STUDIES: Glucose 180, BUN 32, creatinine 0.9, sodium 140, potassium 4.2, magnesium 1.9. Cholesterol 223, triglycerides 51, LDL 139, HDL 74, TSH 0.47. IMAGING: Flat and upright of the abdomen shows nonspecific but nonobstructive bowel gas pattern. There is moderate stool burden in the colon. Unit #: [id number] #: [id number] Patient: LAURA JEFFERY CARDIOVASCULAR STUDIES: Rhythm strip shows normal sinus rhythm to sinus bradycardia, rate in the upper 50s and 60s. EKG shows normal sinus rhythm with rate of 79 beats per minute with left ventricular hypertrophy. There is T wave inversion in the anterolateral leads. CONSULTATIONS HIPS for medical management. DISCHARGE INSTRUCTIONS 1. The patient will be discharged home today. 2. Follow up with Dr. Camargo in 3-4 weeks. She will need to call for an appointment. 3. Follow up with the primary care physician in 1-2 weeks. 4. Will repeat CBC on 06/24/2017 because of leukocytosis. BMP will also be done in two weeks to follow up with GFR. 5. Cardiac rehab has been consulted and the patient was given information and was scheduled for orientation on 07/12/2017 at [facility]. 6. The cost of Entresto for the patient is $5.00 which should be affordable. Will continue for heart failure given her left ventricular systolic dysfunction. 7. For constipation, the patient will continue on Colace and MiraLAX. She has been encouraged to ambulate. 8. Encouraged the patient to stop smoking. Inhalers have been prescribed as well as Mucinex for 10 days. 9. One time dose of Fosfomycin will be required for urinary tract infection. 10. Fluid restriction with 2 g sodium diet will be continued at home. 11. CHF education has been given. Dictated by... Olvin Barger/cris TD: 06/24/2017 07:28 JOB #: [id number] DISCHARGE SUMMARY Page 1 of 1 X Ilya Iglesias APRN X DISCHARGE SUMMARY
--- NOTE | ~2017-06-18 | EKG ---
PATIENT: LAURA JEFFERY UNIT #: [id number] Ventricular Rate: 89 BPM Atrial Rate: 89 BPM P-R Interval: 164 ms QRS Duration: 88 ms Q-T Interval: 372 ms QTC Calculation(Bezet): 452 ms P [place]: 86 degrees Calculated R [place]: 50 degrees Calculated T [place]: 75 degrees Diagnosis Line: Normal sinus rhythm Diagnosis Line: Left atrial enlargement Baseline wander Diagnosis Line: Borderline ECG Diagnosis Line: When compared with ECG of 03-MAR-2017 00:09, Diagnosis Line: ST elevation now present in Lateral leads Diagnosis Line: Confirmed by FELIX OCASIO MD ([id number]) on 06/21/2017 Diagnosis Line: 1:52:15 PM INTERPRETING MD: AMARJIT STORY
--- NOTE | ~2017-06-18 | EKG ---
PATIENT: LAURA JEFFERY UNIT #: [id number] Ventricular Rate: 77 BPM Atrial Rate: 77 BPM P-R Interval: 146 ms QRS Duration: 88 ms Q-T Interval: 420 ms QTC Calculation(Bezet): 475 ms P [place]: 84 degrees Calculated R [place]: 27 degrees Calculated T [place]: 144 degrees Diagnosis Line: Normal sinus rhythm Diagnosis Line: Possible Left atrial enlargement Diagnosis Line: T wave abnormality, consider anterolateral Diagnosis Line: ischemia Diagnosis Line: Prolonged QT Diagnosis Line: Abnormal ECG Diagnosis Line: When compared with ECG of 20-JUN-2017 07:30, Diagnosis Line: No significant change was found Diagnosis Line: Confirmed by CODIE MURPHY MD ([id number]) on 06/23/2017 Diagnosis Line: 4:47:13 PM INTERPRETING MD: KATHERINE STORY
--- NOTE | ~2017-06-18 | EKG ---
PATIENT: LAURA JEFFERY UNIT #: [id number] Ventricular Rate: 70 BPM Atrial Rate: 70 BPM P-R Interval: 156 ms QRS Duration: 90 ms Q-T Interval: 456 ms QTC Calculation(Bezet): 492 ms P [place]: 78 degrees Calculated R [place]: 58 degrees Calculated T [place]: -161 degrees Diagnosis Line: Normal sinus rhythm Diagnosis Line: Left ventricular hypertrophy Diagnosis Line: T wave abnormality, consider anterolateral Diagnosis Line: ischemia Diagnosis Line: Prolonged QT Diagnosis Line: Abnormal ECG Diagnosis Line: When compared with ECG of 19-JUN-2017 08:01, Diagnosis Line: (unconfirmed) Diagnosis Line: Inverted T waves have replaced nonspecific T wave Diagnosis Line: abnormality in Inferior leads Diagnosis Line: Confirmed by JEANNIE PINTO MD ([id number]) on Diagnosis Line: 06/20/2017 5:01:31 PM INTERPRETING MD: LUCILLE
[~2017-06-18 17:14] MED LIST changes: -ALB/IPRATROPIUM/1 E2 INH; -ALDACTONE PO; -ALENDRONATE SOD70 M1 PO; -ASPIRIN81 MG PO; -ATORVASTATIN CA80 MG PO; -CARDIZEM30 M1 PO; -COMBIVENT MININEB INH; -DESYREL50 MG PO; -DOCUSATE SODIU100 MG PO; -ENTRESTO 24 MG1 EACH PO; -HUMIBID-LA600 MG PO; -HYDRALAZINE HC100 MG PO; -HYDROXYZINE PAM25 M1 PO; -JANUVIA25 MG PO; -METOPROLOL TAR25 MG PO; -METOPROLOL TART25 MG PO; -MONUROL3 GM PO; -MULTI-DAY VITA1 EACH PO; -MULTIVITAMINS1 EAC3 PO; -NICOTINE PATCH1 EAC1 TD; -NICOTINE1 EAC1 TD; -NOVOLOG100 U/ML; -TRAMADOL HCL50 M1 PO; -TRAMADOL HCL50 M2 PO; -VITAMIN D31000 UNIT PO
[2017-06-18 18:23] LABS: POC - CKMB 11.4 ng/mL (0.0-7.9); POC - TROPONIN 3.57 ng/mL (<=0.05)
[2017-06-18 18:42] LABS: URINE SOURCE CLEAN CATCH
[2017-06-18 18:53] LABS: URINE APPEARANCE CLOUDY; URINE BILIRUBIN NEG (NEG); URINE BLOOD NEG (NEG); URINE COLOR YELLOW; URINE GLUCOSE 500 MG/DL (NEG); URINE KETONE NEG (NEG); URINE LEUKOCYTE ESTERASE 1+ (NEG); URINE NITRATE NEG (NEG); URINE PH 6.5 (5-8); URINE PROTEIN TRACE (NEG)
[2017-06-18 18:53] LABS: BASOPHIL# 0.1 X10e3 (0-0.3); BASOPHIL% 0.7 % (0-2.5); EOSINOPHIL% 0.1 % (0.0-7.0); HEMATOCRIT 42.3 % (35.0-45.0); HEMOGLOBIN 14.1 gm/dL (12.0-16.0); LYMPHOCYTE# 0.7 X10e3 (1.0-3.5); LYMPHOCYTE% 8.1 % (17.0-45.0); MEAN CELL VOLUME 82.4 FL (83-96); MEAN CORPUSCULAR HEMOGLOBIN 27.5 PG (28-34); MEAN CORPUSCULAR HGB CONC 33.3 g/dL (30-36); MEAN PLATELET VOLUME 9.2 FL (6.5-11.5); MONOCYTE# 0.3 X10e3 (0-1.0); MONOCYTE% 3.2 % (3.0-12.0); NEUTROPHIL# 7.1 X10e3 (1.5-7.1); NEUTROPHIL% 87.9 % (40-75); PLATELET COUNT 218 X10e3 (140-420); RED BLOOD COUNT 5.14 X10e (3.90-5.30); RED CELL DISTRIBUTION WIDTH 15.8 % (11.0-15.5); WHITE BLOOD COUNT 8.1 X10e3 (4.0-10.5)
[2017-06-18 18:56] LABS: DIFF IND NO
[2017-06-18 18:57] LABS: CULTURE INDICATED? YES; U HYALINE CASTS AUWI 0-2 /[LPF]; URINE BACTERIA AUWI 1+ (NEGATIVE); URINE SQUAMOUS EPITHELIAL CELL FEW /[HPF]
[2017-06-18 19:23] LABS: ALBUMIN SERUM 4.3 g/dL (3.5-5.0); BILIRUBIN, DIRECT 0.1 mg/dL (0.0-0.2); BILIRUBIN,INDIRECT 0.1 mg/dL (0.0-0.9); BILIRUBIN,TOTAL 0.2 mg/dL (0.2-2.0); CALCIUM SERUM 10.3 mg/dL (8.4-10.2); POTASSIUM 3.5 mmol/L (3.5-5.1); PROTEIN TOTAL SERUM 7.4 g/dL (6.0-8.3)
[2017-06-18] MEDS ORDERED: JANUVIA PO (19:31)
[2017-06-18] MEDS ORDERED: TRAMADOL HCL50 M2 PO (19:31)
[2017-06-18] MEDS ORDERED: HYDROXYZINE PAM25 M1 PO (19:31)
[2017-06-18] MEDS ORDERED: CARDIZEM30 M1 PO (19:32)
[2017-06-18] MEDS ORDERED: HYDRALAZINE HC100 MG PO (19:32)
[2017-06-18] MEDS ORDERED: NOVOLOG100 U/ML (19:33)
[2017-06-18] MEDS ORDERED: DESYREL50 MG PO (19:33)
[2017-06-18] MEDS ORDERED: PROTONIX PO (19:33)
[2017-06-18] MEDS ORDERED: VITAMIN D31000 UNIT PO (19:34)
[2017-06-18] MEDS ORDERED: MULTIVITAMINS1 EAC3 PO (19:34)
[2017-06-18 19:51] LABS: POC - CKMB 10.3 ng/mL (0.0-7.9); POC - TROPONIN 3.71 ng/mL (<=0.05)
[2017-06-19 00:13] LABS: PROTHROMBIN TIME (PATIENT) 11.3 SECONDS (10.0-11.7)
[2017-06-19 07:07] LABS: BASOPHIL# 0.1 X10e3 (0-0.3); BASOPHIL% 0.7 % (0-2.5); EOSINOPHIL% 0.3 % (0.0-7.0); HEMATOCRIT 45.6 % (35.0-45.0); LYMPHOCYTE# 1.4 X10e3 (1.0-3.5); LYMPHOCYTE% 13.2 % (17.0-45.0); MEAN CELL VOLUME 82.8 FL (83-96); MEAN CORPUSCULAR HEMOGLOBIN 27.2 PG (28-34); MEAN CORPUSCULAR HGB CONC 32.9 g/dL (30-36); MEAN PLATELET VOLUME 9.4 FL (6.5-11.5); MONOCYTE# 0.7 X10e3 (0-1.0); MONOCYTE% 6.1 % (3.0-12.0); NEUTROPHIL# 8.6 X10e3 (1.5-7.1); NEUTROPHIL% 79.7 % (40-75); PLATELET COUNT 255 X10e3 (140-420); RED BLOOD COUNT 5.51 X10e (3.90-5.30); RED CELL DISTRIBUTION WIDTH 15.6 % (11.0-15.5); WHITE BLOOD COUNT 10.7 X10e3 (4.0-10.5)
[2017-06-19 07:14] LABS: DIFF IND NO
[2017-06-19 07:21] LABS: INR 1.1
[2017-06-19 07:34] LABS: PARTIAL THROMBOPLASTIN TIME 84.6 SECONDS (23.5-31.3)
[2017-06-19 10:03] LABS: BUN/CREATININE RATIO 15.38; CALCIUM SERUM 10.2 mg/dL (8.4-10.2); CREATININE SERUM 1.3 mg/dL (0.6-1.4); GLOM FILT RATE Estimated 50.2 mL/min (>60); POTASSIUM 3.9 mmol/L (3.5-5.1)
[2017-06-19 14:52] LABS: AMPHETAMINE NEG (NEG); BARBITURATES NEG (NEG); BENZODIAZEPINES NEG (NEG); COCAINE NEG (NEG); MARIJUANA NEG (NEG); OPIATES POS (NEG); TRICYCLIC ANTIDEPRESSANTS NEG (NEG); U METHADONE NEG (NEG)
[2017-06-19 22:35] LABS: BASOPHIL% 0.3 % (0-2.5); HEMATOCRIT 47.1 % (35.0-45.0); HEMOGLOBIN 15.5 gm/dL (12.0-16.0); LYMPHOCYTE# 1.1 X10e3 (1.0-3.5); LYMPHOCYTE% 8.8 % (17.0-45.0); MEAN CELL VOLUME 82.1 FL (83-96); MEAN CORPUSCULAR HGB CONC 32.9 g/dL (30-36); MEAN PLATELET VOLUME 9.2 FL (6.5-11.5); MONOCYTE# 0.3 X10e3 (0-1.0); MONOCYTE% 2.5 % (3.0-12.0); NEUTROPHIL# 10.5 X10e3 (1.5-7.1); NEUTROPHIL% 88.4 % (40-75); PLATELET COUNT 238 X10e3 (140-420); RED BLOOD COUNT 5.73 X10e (3.90-5.30); RED CELL DISTRIBUTION WIDTH 15.4 % (11.0-15.5); WHITE BLOOD COUNT 11.9 X10e3 (4.0-10.5)
[2017-06-19 22:36] LABS: DIFF IND NO
[2017-06-20 06:13] LABS: HEMATOCRIT 42.7 % (35.0-45.0); HEMOGLOBIN 14.1 gm/dL (12.0-16.0); MEAN CELL VOLUME 82.6 FL (83-96); MEAN CORPUSCULAR HEMOGLOBIN 27.2 PG (28-34); MEAN CORPUSCULAR HGB CONC 32.9 g/dL (30-36); MEAN PLATELET VOLUME 9.8 FL (6.5-11.5); RED BLOOD COUNT 5.18 X10e (3.90-5.30); RED CELL DISTRIBUTION WIDTH 15.3 % (11.0-15.5); WHITE BLOOD COUNT 11.5 X10e3 (4.0-10.5)
[2017-06-20 06:33] LABS: ALBUMIN SERUM 3.7 g/dL (3.5-5.0); BILIRUBIN,TOTAL 0.8 mg/dL (0.2-2.0); BUN/CREATININE RATIO 23.84; CALCIUM SERUM 9.8 mg/dL (8.4-10.2); CREATININE SERUM 1.3 mg/dL (0.6-1.4); GLOM FILT RATE Estimated 50.2 mL/min (>60)
[2017-06-20 07:24] LABS: %MB 5.2 % (0.0-4.0); MB 13.4 ng/ml
[2017-06-20 19:35] LABS: %MB 5.4 % (0.0-4.0); MB 8.6 ng/ml
[2017-06-21 06:21] LABS: HEMATOCRIT 40.7 % (35.0-45.0); HEMOGLOBIN 13.4 gm/dL (12.0-16.0); MEAN CELL VOLUME 82.8 FL (83-96); MEAN CORPUSCULAR HEMOGLOBIN 27.2 PG (28-34); MEAN CORPUSCULAR HGB CONC 32.9 g/dL (30-36); MEAN PLATELET VOLUME 9.6 FL (6.5-11.5); RED BLOOD COUNT 4.92 X10e (3.90-5.30); RED CELL DISTRIBUTION WIDTH 15.3 % (11.0-15.5); WHITE BLOOD COUNT 12.9 X10e3 (4.0-10.5)
[2017-06-21 06:30] LABS: INR 1.1; PARTIAL THROMBOPLASTIN TIME 52.6 SECONDS (23.5-31.3); PROTHROMBIN TIME (PATIENT) 11.7 SECONDS (10.0-11.7)
[2017-06-21 06:59] LABS: BUN/CREATININE RATIO 30.83; CALCIUM SERUM 10.3 mg/dL (8.4-10.2); CREATININE SERUM 1.2 mg/dL (0.6-1.4); GLOM FILT RATE Estimated 55.3 mL/min (>60); POTASSIUM 4.1 mmol/L (3.5-5.1)
[2017-06-21 23:19] LABS: URINE SOURCE CLEAN CATCH
[2017-06-21 23:29] LABS: URINE APPEARANCE CLEAR; URINE BILIRUBIN NEG (NEG); URINE BLOOD NEG (NEG); URINE COLOR YELLOW; URINE GLUCOSE NEG (NEG); URINE KETONE TRACE (NEG); URINE LEUKOCYTE ESTERASE TRACE (NEG); URINE NITRATE NEG (NEG); URINE PROTEIN NEG (NEG); URINE SPECIFIC GRAVITY 1.041 (1.003-1.035)
[2017-06-21 23:33] LABS: U HYALINE CASTS AUWI 0-2 /[LPF]; URINE BACTERIA AUWI NEG (NEGATIVE); URINE SQUAMOUS EPITHELIAL CELL OCC /[HPF]
[2017-06-22 05:03] LABS: BUN/CREATININE RATIO 35.55; CALCIUM SERUM 10.2 mg/dL (8.4-10.2); CREATININE SERUM 0.9 mg/dL (0.6-1.4); GLOM FILT RATE Estimated 78.4 mL/min (>60); MAGNESIUM 1.9 mg/dL (1.6-3.0); POTASSIUM 4.2 mmol/L (3.5-5.1)
[2017-06-22] MEDS ORDERED: ENTRESTO 24 MG1 EACH PO (17:25)
[2017-06-22] MEDS ORDERED: ALDACTONE PO (17:26)
[2017-06-22] MEDS ORDERED: ATORVASTATIN CA80 MG PO (17:26)
[2017-06-22] MEDS ORDERED: NICOTINE PATCH1 EAC1 TD (17:27)
[2017-06-22] MEDS ORDERED: METOPROLOL TAR25 MG PO (17:28)
[2017-06-22] MEDS ORDERED: DOCUSATE SODIU100 MG PO (17:29)
[2017-06-22] MEDS ORDERED: MIRALAX17 GM PO (17:29)
[2017-06-22] MEDS ORDERED: HUMIBID-LA600 MG PO (17:30)
[2017-06-22] MEDS ORDERED: MULTIVITAMINS1 EAC3 PO (17:30)
[2017-06-22] MEDS ORDERED: ASPIRIN81 MG PO (17:31)
[2017-06-22] MEDS ORDERED: MONUROL3 GM PO (17:32)
[2017-06-22] MEDS ORDERED: ALB/IPRATROPIUM/1 E2 INH (17:33)
[2017-07-13] MEDS ORDERED: COMBIVENT MININEB INH ×2 (04:26→04:37)
[2017-07-13] MEDS ORDERED: ENTRESTO 24 MG1 EACH PO ×2 (04:26→04:38)
[2017-07-13] MEDS ORDERED: DESYREL50 MG PO ×2 (04:27→04:39)
[2017-07-13] MEDS ORDERED: JANUVIA25 MG PO (04:28)
[2017-07-13] MEDS ORDERED: ATORVASTATIN CA80 MG PO ×2 (04:29→04:40)
[2017-07-13] MEDS ORDERED: HYDROXYZINE PAM25 M1 PO ×2 (04:29→04:40)
[2017-07-13] MEDS ORDERED: NICOTINE1 EAC1 TD ×2 (04:31→04:41)
[2017-07-13] MEDS ORDERED: METOPROLOL TAR25 MG PO (04:32)
[2017-07-13] MEDS ORDERED: JANUVIA50 MG PO ×2 (04:39→04:44)
[2017-07-13] MEDS ORDERED: METOPROLOL TART25 MG PO (04:41)
[2017-07-13] MEDS ORDERED: DOCUSATE SODIU100 MG PO (04:42)
[2017-07-13] MEDS ORDERED: HUMIBID-LA600 MG PO (04:43)
[2017-07-13] MEDS ORDERED: MIRALAX17 GM PO (04:43)
[2017-07-13] MEDS ORDERED: MULTI-DAY VITA1 EACH PO (04:44)
[2017-07-13] MEDS ORDERED: ASPIRIN81 MG PO (04:45)
[2017-07-13] MEDS ORDERED: TRAMADOL HCL50 M1 PO (04:46)
[2017-07-13] MEDS ORDERED: ALDACTONE PO (04:47)
[2017-07-13] MEDS ORDERED: PROTONIX PO (04:47)
[2017-07-13] MEDS ORDERED: VITAMIN D31000 UNIT PO (04:52)
[2017-07-13] MEDS ORDERED: ALENDRONATE SOD70 M1 PO (04:53)
== END 2017-06-22 18:57 | disposition home or self-care (01) | DRG 280 ==
LOC: CED 17:14 → CEDOF 19:40 → C5C 19:40 → CED 20:22 → CEDOF 20:22 → C5C 22:04 → CEDOF 22:04 → C5C 22:04
PROVIDERS: Emergency Medicine; Internal Medicine; Internal Medicine Cardiovascular Disease; Nurse Practitioner
PROC: 02HV33Z Insertion of Infusion Device into Superior Vena Cava, Percutaneous Approach (ICD-10-PCS; principal; 2017-06-19)
PROC: 4A02X4A Measurement of Cardiac Electrical Activity, Guidance, External Approach (ICD-10-PCS; 2017-06-19)
PROC: B548ZZA Ultrasonography of Superior Vena Cava, Guidance (ICD-10-PCS; 2017-06-19)
PROC: 4A023N7 Measurement of Cardiac Sampling and Pressure, Left Heart, Percutaneous Approach (ICD-10-PCS; 2017-06-21)
PROC: B211YZZ Fluoroscopy of Multiple Coronary Arteries using Other Contrast (ICD-10-PCS; 2017-06-21)
PROC: B215YZZ Fluoroscopy of Left Heart using Other Contrast (ICD-10-PCS; 2017-06-21)
DX: I21.4 Non-ST elevation (NSTEMI) myocardial infarction (principal); I50.23 Acute on chronic systolic (congestive) heart failure; E11.65 Type 2 diabetes mellitus with hyperglycemia; J44.1 Chronic obstructive pulmonary disease with (acute) exacerbation; N18.3 Chronic kidney disease, stage 3 (moderate); N39.0 Urinary tract infection, site not specified; I13.0 Hypertensive heart and chronic kidney disease with heart failure and stage 1 through stage 4 chronic kidney disease, or unspecified chronic kidney disease; E78.5 Hyperlipidemia, unspecified; F11.10 Opioid abuse, uncomplicated; Z98.51 Tubal ligation status; F17.210 Nicotine dependence, cigarettes, uncomplicated; Z88.2 Allergy status to sulfonamides; Z88.1 Allergy status to other antibiotic agents; Z91.040 Latex allergy status; Z79.4 Long term (current) use of insulin; R10.9 Unspecified abdominal pain; B96.20 Unspecified Escherichia coli [E. coli] as the cause of diseases classified elsewhere; K59.00 Constipation, unspecified
CPT/HCPCS: 36415; 71010; 74000; 74020; 80048; 80053; 80061; 80076; 80307; 81003; 82150; 82550; 82553; 82947; 83036; 83690; 83735; 83880; 84443; 84484; 85025; 85027; 85610; 85730; 87086; 93005; 93306; 94640; 94660; 94664; 94760; 96361; 96374; 96375; 99152; 99153; 99285; C1769; C1887; C1894; C9113; J1327; J1642; J1644; J1650; J1815; J1940; J2185; J2250; J2270; J2405; J2550; J2765; J2930; J3010; J3475